=== PATIENT | female | born 1990 | race Caucasian/White ===

== ENCOUNTER 2017-10-26 21:17 | Emergency (ER) | payer BC ==
[~2017-10-26] VITALS: Ht 157.5 cm; Wt 112.9 kg
[~2017-10-26 21:17] MED LIST: NAPROSYN500 MG PO; NORCO 7.5/321 TABLET PO; PEN-VEE K,VEET500 MG PO; PERCOCET 5/31 TABLET PO
[2017-10-26 22:08] LABS: HEMATOCRIT 46.9 % (36.0-46.0); HEMOGLOBIN 15.8 G/DL (11.9-15.5); MCH 29.5 PG (29.0-34.0); MCHC 33.7 G/DL (30.0-36.0); MCV 87.5 FL (83-99); PLATELET COUNT 305 K/uL (156-360); RBC DIS.WIDTH-CV 14.2 % (11.8-14.6); RBC DIS.WIDTH-SD 45.9 % (39-53); RED BLOOD COUNT 5.36 M/uL (3.80-5.20); WHITE BLOOD COUNT 13.3 K/uL (4.1-10.2)
[2017-10-26 22:28] LABS: CHLORIDE 107 mEq/L (99-109); POTASSIUM 3.9 mEq/L (3.7-5.4); SODIUM 140 mEq/L (136-147)
[2017-10-26 22:29] LABS: GLUCOSE 96 mg/dL (70-99)
[2017-10-26 22:33] LABS: CREATININE 0.7 mg/dL (0.6-1.3); GFR ESTIMATE (CALCULATED) > 59 mL/min/
[2017-10-26 22:34] LABS: UREA NITROGEN (BUN) 9 mg/dL (9-23)
[2017-10-26 22:35] LABS: TROP-I INTERPRETATION NEGATIVE; TROPONIN-I 0.02 ng/mL (0.0-0.30)
[2017-10-26] MEDS ORDERED: CHANTIX1 EACH PO (23:30)
[2017-10-26 23:41] VITALS: BP 141/101
== END 2017-10-26 23:43 | disposition home or self-care (01) ==
LOC: EME 21:17
DX: I10 Essential (primary) hypertension (principal); R07.9 Chest pain, unspecified; F17.200 Nicotine dependence, unspecified, uncomplicated
CPT/HCPCS: 71046; 80048; 84484; 85027; 93005; 99281; 99284